=== PATIENT | male | born 1980 | race Asian ===

== ENCOUNTER 2022-06-05 12:30 | Emergency (ER) | payer MEDICARE, MEDICAID ==
[~2022-06-05] VITALS: Ht 180.3 cm; Wt 96.0 kg
[2022-06-05] MEDS ORDERED: IBUPROFEN 400MG TABLET PO ONE (16:00)
[2022-06-05] MEDS ORDERED: ONDANSETRON 4MG ODT PO ONE (16:00)
[2022-06-05 16:51] VITALS: BP 165/111
[2022-06-05] MEDS ORDERED: IBUP-2028 MT (17:27)
== END 2022-06-05 17:48 | disposition home or self-care (01) ==
LOC: ER 12:30
DX: R51.9 Headache, unspecified (principal); W18.30XA Fall on same level, unspecified, initial encounter; Y93.89 Activity, other specified; Y92.89 Other specified places as the place of occurrence of the external cause; Y99.8 Other external cause status
CPT/HCPCS: 99283; Q0162